=== PATIENT | male | born 1950 | race Caucasian/White ===

== ENCOUNTER → 2022-07-28 10:25 | Outpatient (CLI) | payer MEDICARE, OTHER, SELFPAY ==
[2022-07-28 11:15] LABS: COVID19 -Nasal RAPID Negative (Negative)
== END ==
PROVIDERS: Referring Provider Orthopaedic Surgery Orthopaedic Surgery of the Spine; Visit Provider Orthopaedic Surgery Orthopaedic Surgery of the Spine
DX: Z20.822 Contact with and (suspected) exposure to COVID-19 (principal)
CPT/HCPCS: 87635; C9803

== ENCOUNTER 2022-07-31 12:30 | Inpatient (IN) | payer MEDICARE, OTHER, SELFPAY ==
[2022-07-25 12:17] VITALS: BMI 31.5
[2022-07-31] VITALS (14 sets, daily range): BP systolic 113–159; BP diastolic 59–88; PULSE 49–64; RESP 11–28; TEMP 35.7–36.4; O2SAT 93–98; BMI 31.5
[2022-07-31] MEDS: LACTATED RINGERS 1,000 ML 42 ML IV (13:14)
--- NOTE | 2022-07-31 13:17 | PM.PREOP ---
Pre-operative Note COVID-19 COVID-19 status: Negative Result date/Date tested (Pos, Neg/Pending): 07/30/22 Criteria for continued procedure: Expected advancement of disease process, Possibility delay results in more complex future surgery or treatment, Increased loss of function, Continuing or worsening of significant or severe pain, Deterioration of the patient's condition or overall health and Delay expected to result in less-positive ultimate med/surg outcome Interval Note History & Physical reviewed/Exam performed by Physician: Yes Changes to H&P: No
--- NOTE | 2022-07-31 13:58 | PM.OP.1 ---
Operative Date/Time/Diagnoses Date of procedure: 07/31/22 Time of procedure: 14:15 Pre-op diagnosis: 1. L3-4 spinal stenosis with neurogenic claudication 2. L3-4 spondylolisthesis Post-op diagnosis: same Procedure & Clinicians Procedure: 1. L3-4 Postero-lateral and posterior interbody fusion 2. L3-4 interbody cage placement. 3. L3-4 decompressive laminectomy with bilateral facetecomies 4. L3-4 Posterior non-segmental instrumentation 5. [place] of bone marrow from iliac crest 6. Utilization of microsurgical technique and operating microscope Same procedure as scheduled: Yes Indications: Patient has been having chronic back pain and worsening lumbar radiculopathy and symptoms of neurogenic claudication. Patient failed multiple conservative management with worsening pain weakness and numbness in his lower extremity. Patient has been having difficulty performing activity of daily living. After discussing risks benefits of treatment options, patient elected proceed with surgery. Surgeon: Lisa Rashid Residential Recycle Driver: Ambrosio Baldwin Click Yes if Unassisted: No Anesthesia Type: General Operative Notes Closure Type: primary Specimen(s): none sent Prosthetic devices, grafts, tissues, transplants, or devices: Globus Revolve screws, Rise cage Estimated Blood Loss (mL): 50 Blood products transfused: none Procedure in detail: Patient was seen in the preoperative area. Risks and benefits of the surgery was discussed with the patient. Informed consent was obtained from the patient and placed in the chart. Surgical site was marked. Patient was taken to the operative room. General anesthesia was administered. Prophylactic antibiotic was given to the patient less than 30 min before the incision was made. Patient was placed into a prone position on the Brannon table. Patient's back was then prepped and draped in the sterile fashion. Time-out was performed at this time. Using AP and lateral C-arm imaging the interval between L3-4 was identified and marked on patient's back. A 2 inch incision 2 in from midline was made on the right side first. The fascia was incised in line with skin incision. Globus MARS retractors was placed inside the incision and docked onto the L3 lamina. Using microsurgical technique and operating microscope, a L3 laminectomy and L3-4 facetectomy was performed using a Kerrison rongeur. The disc space at L3-4 was identified. And a total diskectomy was performed at L3-4 level. The endplates were decorticated using a rasp and shaver. The total diskectomy and decortication was performed at L3-4 level in order to to accomplish a L3-4 fusion. The local bone from the laminectomy and facetectomy was saved for local bone grafting. After the total diskectomy and decortication was completed, Globus Trifecta bone graft material was combined with local bone that was harvested earlier. At this time, a separate skin is incision was made over the iliac crest. A Jamshidi needle was inserted into the iliac crest through a separate skin incision. 5 cc of bone marrow aspiration was obtained through the separate skin incision using a Jamshidi needle from the iliac crest. The bone marrow aspiration was combined with local bone and the Trifecta bone grafting material. The bone grafting material was placed into the L3-4 interbody space along with a expandable cage. The cage was expanded to its maximum height using the torque limiting screwdriver. At this time a mirror image incision was made on the left side. The fascia was incised in line with the skin incision. Globus MARS retractor was inserted and docked onto the L3-4 posterolateral gutter. Using the power drill, posterior-lateral decortication was performed at L3-4 level until bleeding cortical bone was identified. The remaining bone grafting material was placed into the L3-4 posterior lateral gutter he order to accomplish posterolateral fusion at the L3-4 level. Using the double C-arm technique, pedicle screws were placed into the L3-4 pedicles bilaterally. This was done by placing the Jamshidi needle into the pedicles, then placing the guidewires over the Jamshidi needle, and finally placing the cannulated screws over the guidewires bilaterally. After the pedicle screws were placed, 2 titanium rods was locked into the heads of the pedicle screws using locking caps and torque limiting screwdriver. After all the hardware was placed, and confirmed with AP and lateral C-arm imaging, the wound was then irrigated with sterile normal saline and packed with Ray-Tomasz gauze for 3 min to accomplish hemostasis. After the gauze was removed the deep fascia was closed with #1 Vicryl suture. The subcutaneous layer was closed with 2-0 Vicryl. The skin was closed with skin bina. Patient tolerated the procedure well. There were no complications. Complications: none Post-operative Condition: stable Disposition: PACU Plan for aftercare: Admit to inpatient hospital
[2022-07-31] MEDS: CEFAZOLIN 2 GM/100 ML PREMIX 100 ML IV ×2 (14:19→20:52)
--- NOTE | 2022-07-31 14:29 | SUR.OPER ---
Prone on spine table, head in foam head support, padded chest and pelvic supports, gel pad at knees, lower legs supported by pillows; nipples, genitalia and toes free of pressure, arms secured on foam padded arm boards at <90 degrees abduction. Tape over blanket at thigh secured to table.
[2022-07-31] MEDS: BUPIVACAINE 0.25% (PF) VIAL 30 ML INJ (14:45)
[2022-07-31] MEDS: BUPIVACAINE LIPOSOME 266 MG/20 ML VIAL INJ (14:46)
[2022-07-31] MEDS: ACETAMINOPHEN IV 1,000 MG/100 ML VIAL 400 MG IV (14:48)
--- NOTE | 2022-07-31 16:29 | DI.RAD.S_ITS ---
PROCEDURE: XR LUMBAR SPINE 2-3V INDICATIONS: L3-4 TLIF TECHNIQUE: Low resolution intraoperative fluoroscopic spot films of L3-4 COMPARISON: None. FINDINGS: Low resolution intraoperative fluoroscopic spot films show L3-4 interbody graft and associated posterior varun and screw instrumentation in place IMPRESSION: Fluoroscopic guidance Approved by: Darío Pang M.D. on 07/31/2022 at 15:59
[2022-07-31] MEDS: LORazepam 2 MG/ML INJ 0.25 MG IV (16:42)
[2022-07-31] MEDS: HYDROMORPHONE 2 MG INJ IV (16:50)
[2022-07-31] MEDS: hydrOXYzine 50 MG/ML INJ 25 MG IM (16:54)
[2022-07-31] MEDS: OXYCODONE IR 5 MG TABLET PO (17:10)
[2022-07-31] MEDS: SODIUM CHLORIDE 0.9% 1,000 ML 100 ML IV (18:00)
--- NOTE | 2022-07-31 18:27 | PC.NURSE ---
Addendum entered by Millie Martin R.N. 07/31/22 19:32: pt with large void this evening at approximately 1850, able to stand at the edge of the bed to void. medicated for 8/10 pain with oxycodone 10 mg and prn tylenol. Original Note: Pt arrived from PACU this evening at 1710, A&OX3, VSS, afebrile on 4LNC. He denies SOB, n/v. He is weaned down on 02. Encourgaed IS use. LR running at 100 ml/hr. He is able to log roll in bed, dressing c/d/i. +CMS to BLE's. Awaiting patient to void.
[2022-07-31] MEDS: DOCUSATE 100 MG CAPSULE PO (20:43)
[2022-07-31] MEDS: DONEPEZIL 5 MG TABLET 10 MG PO (20:43)
[2022-07-31] MEDS: SENNOSIDES 8.6 MG TABLET 17.2 MG PO (20:43)
[2022-07-31] MEDS: ATORVASTATIN 20 MG TABLET 40 MG PO (20:43)
[2022-07-31] MEDS: TRAZODONE 50 MG TABLET 100 MG PO (20:43)
[2022-07-31] MEDS: hydrOXYzine pamoate 25 MG CAPSULE PO (21:44)
[2022-07-31] MEDS: HYDROCODONE/ACET 5/325 TABLET 1 TAB PO (21:44)
[2022-08-01] MEDS: OXYCODONE IR 5 MG TABLET 10 MG PO ×3 (01:06→10:48)
[2022-08-01] MEDS: ACETAMINOPHEN 325 MG TABLET 650 MG PO (01:06)
[2022-08-01] MEDS: SODIUM CHLORIDE 0.9% 1,000 ML 100 ML IV (04:39)
[2022-08-01] MEDS: CEFAZOLIN 2 GM/100 ML PREMIX 100 ML IV (05:31)
[2022-08-01 06:45] VITALS: BP 115/69; PULSE 73; RESP 17; TEMP 36.6; O2SAT 93
--- NOTE | 2022-08-01 09:50 | PT.IIE ---
Current Diagnoses Spondylolisthesis, lumbar region (07/31/22) Spinal stenosis, lumbar region with neurogenic claudication (07/31/22) Surgery Performed Operation Date: 07/31/22 14:15 Actual Procedures p L3-4 TLIF(Not Applicable) - Lisa Rashid MD Surgical History (Last Updated 07/25/22 @ 10:21 by Jaylene Kearns RN) H/O left wrist surgery (2016) H/O right wrist surgery (2011) H/O vasectomy (1990) History of carpal tunnel surgery of right wrist History of prostate surgery (12/08/19) Hx of arthroscopy of right knee (10/29/87) Hx of knee surgery (10/29/06) S/P epidural steroid injection Medical History (Last Updated 07/25/22 @ 11:05 by Jaylene Kearns RN) Acute saddle pulmonary embolism with acute cor pulmonale (09/2021) Arthritis Atrial fibrillation (~2020) BPH (benign prostatic hyperplasia) CAD (coronary artery disease) Easy bruisability History of colonic polyps HTN (hypertension) Hypercholesterolemia Insomnia Mild cognitive impairment Nonischemic cardiomyopathy Osteoarthritis Sensorineural hearing loss Systolic heart failure Tinnitus of both ears Physical Therapy Inpatient Evaluation/Re-Eval M1 PT/OT-IP Prior Functional Status Start: 08/01/22 13:09 Freq: NEEDED Status: Active Protocol: Document 08/01/22 09:50 AB (Rec: 08/01/22 13:20 [facility] [id number]) Medical Review Prior Functional Status Medical History Reviewed Yes Communication able to make needs known Mobility and Gait pt stated that he is modified independent with all mobilities and ambulation without AD Social History Household Members spouse,children Living Arrangements House Number of Floors (Floors) Two Floors Number of Stairs To Enter/Railing? 3 steps R rail ascending to enter the house 12 steps to bedroom with L rail ascending: pt stated that he will stay on the main level of the house Home Environment Standard Height Toilet,High Toilet,Walk in Shower Home Equipment Front Wheel Walker,Straight Cane M2 PT-IP Current Condition Start: 08/01/22 13:09 Freq: NEEDED Status: Active Protocol: Document 08/01/22 09:50 AB (Rec: 08/01/22 13:20 [id number] Therapy Current Condition Current Condition Evaluation Date 08/01/22 Treatment Diagnosis s/p L3-4 TLIF; difficulty in walking Onset Date 07/31/22 M3 PT-IP Subjective Start: 08/01/22 13:09 Freq: NEEDED Status: Active Protocol: Document 08/01/22 09:50 AB (Rec: 08/01/22 13:20 AB [id number]) Subjective Physical Therapy Visit Type Type Initial Evaluation Visit Start Time 09:50 Visit Stop Time 10:42 Total Visit Minutes 52 Number of DIE MECHANIC Visits 0 Physical Therapy Visit Comments Patient Comments agreeable to do PT Therapy Pain Assessment Pain When Pain Assessed At Rest Pain Present Pain Present Pain Reported Location Back Intensity 4 Scale Used Numeric (0 - 10) Pain Management Techniques Apply Cold,Distraction, Modification of Treatment,Re- positioning,Timing of Activity with Medications M4 PT-IP Mobility and Gait Start: 08/01/22 13:09 Freq: NEEDED Status: Active Protocol: Document 08/01/22 09:50 AB (Rec: 08/01/22 13:20 AB [id number]) PT-Bed Mobility Assessment Rolling Type of Rolling Log Rolling Level of Assist Standby Assistance Supine to Sit Supine to Sit Standby Assistance Sit to Supine Sit to Supine Standby Assistance PT-Transfer Assessment Sit to and From Stand Sit to and from Stand Contact Guard Assistance,1 Person Assistance,Use of Upper Extremities Equipment Transfer Assistive Device Gait Belt,Front Wheeled Walker Orthotic/Prosthetic Devices or Brace: No Transfers Transfer Destination Chair Transfer Technique ambulated Transfer Ability Level of Assist Contact Guard Assistance,1 Person Assistance,Use of Upper Extremities Comments Mobility Comments spouse in room with pt. educated pt and spouse regarding pt's back precautions and log roll bed mobility. spouse stated that pt has memory issues. pt completed log roll bed mobility SBA with initial cues but repeated again and no cues needed. pt able to siti on EOB SBA. completed sit to stand CGA and ambulated to the chair using FWW SBA. caregiver training conducted. educated spouse on how to use safety belt and how to assist pt. spouse was able to put safety belt on pt. assisted pt with sit to stand and ambulated pt in the hallway using FWW SBA to CGA ~ 150 ft. educated pt and spouse on how to complete stair climbing. pt completed up/down steps holding on to R rail with B hands. spouse assist pt. pt completed x 3 steps and spouse was able to assist pt safely. pt ambulated back to his room using FWW SBA to CGA ~ 250 ft. pt agreed to sit on the chair. positioned pt on the chair. call light and table placed within reach. pt and spouse without further concerns. Gait Assessment Gait Gait Assistance Required: Standby Assistance,Contact Guard Assist,1 Person Assist Distance (Feet) 250 Able to Maintain Weight Bearing Status No During Gait Assistive Devices Assistive Device Gait Belt,Front Wheeled Walker Orthotic/Prosthetic Devices or Brace: No Gait Deviations General Gait Pattern Decreased Stride Length, Decreased Feet Clearance Factors Limiting Gait Function Factors Limiting Gait Function Decreased Activity Tolerance, Decreased Strength,Difficulty Following Directions,Limited Range of Motion,Pain,Poor Balance,Poor Safety Awareness Comments Gait Comments pls refer to mobility section for details Stair Climbing Assessment Evaluation Level of Assist On Stairs Contact Guard Assistance Devices Stair Climbing Assistive Devices Right Railing Technique/Endurance Stair Climbing Direction Ascend and Descend Stair Climbing Technique Step to Step Number of Steps Climbed 3 Query Text: Stair Climbing Set # Repetitions (reps) 3 Comments Stair Climbing Comments refer to mobility section for details PT-Balance Assessment Sitting Balance and Reactions Static Sitting Balance Ability Normal Dynamic Sitting Balance Ability Good Standing Balance and Reactions Static Standing Balance Ability Fair Dynamic Standing Balance Ability Fair Device Used FWW M5 PT-IP Objective Assessments Start: 08/01/22 13:09 Freq: NEEDED Status: Active Protocol: Document 08/01/22 09:50 AB (Rec: 08/01/22 13:20 [id number]) Orientation Orientation/Cognition Level of Alertness Alert Orientation Name,Place,Situation Language Function Ability Hard of Hearing Safety Awareness Decreased Safety Awareness Memory Description Short Term Impaired Gross Range of Motion Lower Extremity ROM Assessment Within Functional Limits Strength Lower Extremity Strength Hip 4-/5 Knee 4-/5 Sensation Assessment Sensation Gross Sensation WNL Muscle Tone Muscle Tone WNL Yes M6 PT-IP Treatment Start: 08/01/22 13:09 Freq: NEEDED Status: Active Protocol: Document 08/01/22 09:50 AB (Rec: 08/01/22 13:20 AB [id number]) Physical Therapy Treatment Education Education Provided Precautions,Weight Bearing Status,Post-Op Packet,Safety M7 PT-IP Assessment and Plan Start: 08/01/22 13:09 Freq: NEEDED Status: Active Protocol: Document 08/01/22 09:50 AB (Rec: 08/01/22 13:20 AB [id number]) PT Summary Assessment and Plan Potential Rehabilitation Potential Good Status of Condition at Evaluation Stable Summary Impairments Pain,ROM,Strength,Balance, Coordination,Sensation,Tone, Cognition,Bed Mobility, Transfers,Gait,Activity Tolerance Assessment Summary pt requiring SBA to CGA with mobility using FWW. caregiver training conducted and spouse was able to assist pt safely. pt plans to go home and spouse to assist him. pt may go home when medically stable. Goals Bed Mobility Goal Independent Transfer Goal Independent,Front Wheeled Walker Gait Goal Independent,Front Wheel Walker Gait Distance 300 Other Goals up/down 3 steps R rail ascending mod I Days to Meet Goals 3 Frequency of Treatment Frequency Of Treatment Twice a Day Treatment Plan Physical Therapy Treatment Plan Bed Mobility Training,Transfer Training,Gait Training, Therapeutic Exercise,Balance Retraining,Post Op Education, Discharge Planning,Hot or Cold Pack,Neuromuscular Re-ed, Coordination Retraining,Manual Therapy Precautions Lumbar Precautions Log Roll,No Twisting,Limit Bending,Lifting Restriction of 10 lbs,Gait Belt above Incisional Area Recommendations To Nursing Amount of Assist Needed 1 Person Assist Discharge Recommendations PT Discharge Recommendations Home with Assistance Transportation Needs at Discharge Private Vehicle
[2022-08-01 10:00] VITALS: BP 132/64; PULSE 72; RESP 18; TEMP 36.6; O2SAT 95
[2022-08-01] MEDS: hydroCHLOROthiazide 25 MG TABLET PO (10:48)
[2022-08-01] MEDS: DOCUSATE 100 MG CAPSULE PO (10:48)
[2022-08-01] MEDS: lisinopriL 5 MG TABLET PO (10:48)
--- NOTE | 2022-08-01 11:19 | P.DS_ITS ---
History of Present Illness History of Present Illness Date Patient Seen: 08/01/22 Time Patient Seen: 11:19 Chief complaint: INPT Narrative: Postop day 1 L3-[address] fusion [address] Rashid. Doing very well sitting at bedside. Walked around the physical therapy. Family in the room. Pain controlled. No complaints. Discharge Providers Provider Date of admission: 07/31/22 12:30 Discharge Date: 08/01/22 Primary care physician: Tyree Oconnor DO Consults: 07/25/22 12:25 Consult to Anesthesiology Routine Comment: Consulting Provider: Anesthesiologist Reason for consultation: PAC courtesy re: Cardiopulmonary history 07/31/22 17:26 Consult to Occupational Therapy Evaluate & Treat Comment: Physician Instructions: Evaluate and treat Consult to Physical Therapy Evaluate & Treat Comment: Physician Instructions: Evaluate and Treat Discharge provider: Savita Pena MD Summary Hospital Course Discharge Diagnosis: Spondylolisthesis lumbar Hospital Course: Patient was admitted to the floor after surgery for his L3-4 posterior spinal fusion. He is doing well. He was maintained on IV and oral pain medication wean to oral pain medication. Tolerated p.o. diet. He was able to walk around the floor with physical therapy needing no assistance. On postoperative day 1 pain was controlled and he was appropriate for discharge home. Status at Discharge Cognitive/behavioral status at discharge: oriented Functional status at discharge: independent ambulation Overall status at discharge: patient is progressing back to baseline Time Spent with Patient Time spent: Less than 30 minutes Exam Vital Signs (past 8 hours): - 08/01/22 06:45 Temperature 97.8 F Pulse Rate 73 Respiratory Rate 17 Blood Pressure 115/69 Pulse Oximetry 93 Oxygen Flow Rate 0 Oxygen Delivery Method Room Air Oxygen Flow Rate 0 Narrative Exam Narrative: Alert oriented male no acute distress. HEENT normocephalic atraumatic Lungs clear to auscultation VAC dressing is clean dry and intact Demonstrates 5/5 dorsiflexion plantar flexion. Sensation grossly intact bilateral lower extremities. Calves are soft. [facility] Medical History (Updated 07/25/22 @ 11:05 by Jaylene Kearns RN) Acute saddle pulmonary embolism with acute cor pulmonale (09/2021) Arthritis Atrial fibrillation (~2020) BPH (benign prostatic hyperplasia) CAD (coronary artery disease) Easy bruisability History of colonic polyps HTN (hypertension) Hypercholesterolemia Insomnia Mild cognitive impairment Nonischemic cardiomyopathy Osteoarthritis Sensorineural hearing loss Systolic heart failure Tinnitus of both ears Surgical History (Updated 07/25/22 @ 10:21 by Jaylene Kearns RN) H/O left wrist surgery (2016) H/O right wrist surgery (2011) H/O vasectomy (1990) History of carpal tunnel surgery of right wrist History of prostate surgery (12/08/19) Hx of arthroscopy of right knee (10/29/87) Hx of knee surgery (10/29/06) S/P epidural steroid injection Social History household members: spouse and children Smoking Status: Former smoker alcohol intake: current Discharge Assessment & Plan Assessment and Plan Assessment: Normal postoperative course L3-L4 posterior spinal fusion Plan of Treatment: Routine postop spinal fusion protocol. No bending lifting or twisting. Keep dr almeida clean dry and intact. Follow-up in 2 weeks. Discharge home. May resume baseline Xarelto on postop day 3 () Discharge Plan Discharge Plan Patient Disposition: Home Discharge orders & Medications Prescriptions: New oxycodone 5 mg tablet 5 - 10 mg PO Q4H PRN (Reason: pain) Qty: 40 0RF Rx Instructions: Postop exempt ondansetron 4 mg tablet,disintegrating 4 mg PO Q8H PRN (Reason: nausea and vomiting) Qty: 7 0RF Continued atorvastatin 40 mg Tablet 40 mg PO BEDTIME trazodone 50 mg Tablet 100 mg PO BEDTIME donepezil 10 mg Tablet 10 mg PO BEDTIME acetaminophen [Tylenol 8 Hour] 650 mg Tablet Extended Release 650 mg PO DAILY PRN (Reason: Pain) lisinopril 5 mg Tablet 5 mg PO DAILY hydrochlorothiazide 25 mg Tablet 25 mg PO QAM metoprolol succinate 25 mg Tablet Extended Release 24 Hr 12.5 mg PO QPM tadalafil 5 mg Tablet 5 mg PO DAILY PRN (Reason: Sexual Activity) Rx Instructions: administer approximately 30min before sexual activity; do not use more than 1 dose per 24hrs Xarelto 20 mg Tablet 20 mg PO QPM Rx Instructions: must administer with evening meal Discontinued hydrocodone-acetaminophen 5-325 mg Tablet 1 tab PO Q4-6H PRN (Reason: Pain) Follow up/Referrals: Tyree Oconnor DO [Primary Care Provider] - Diet/Activity/Treatments Diet: Diet as Tolerated and Regular Activity: No bending lifting or twisting Other treatments: Follow-up as scheduled in 2 weeks to [facility] -you may restart your Xarelto on postop day 3 () Skin/Wound/Dressing Care Report to your healthcare provider any signs of infection, such as:: chills, fever, night sweats, increased pain, unusual drainage and unusual redness Dressing: Keep dressing clean dry and intact Visit Report/Discharge Packet Instructions: DI for Prescription Opioid Use, DI for Transforaminal Lumbar Interbody Fusion Discharge Data Primary Care Provider: Tyree Oconnor Quality VTE Deep Vein Thrombosis/Pulmonary Embolism Present on Admission: No
--- NOTE | 2022-08-01 12:34 | OT.IP.EVAL ---
Current Diagnoses Spondylolisthesis, lumbar region (07/31/22) Spinal stenosis, lumbar region with neurogenic claudication (07/31/22) Surgery Performed Operation Date: 07/31/22 14:15 Actual Procedures p L3-4 TLIF(Not Applicable) - Lisa Rashid MD Past Medical History (Last Updated 07/25/22 @ 11:05 by Jaylene Kearns, RN) Acute saddle pulmonary embolism with acute cor pulmonale (09/2021) Arthritis Atrial fibrillation (~2020) BPH (benign prostatic hyperplasia) CAD (coronary artery disease) Easy bruisability History of colonic polyps HTN (hypertension) Hypercholesterolemia Insomnia Mild cognitive impairment Nonischemic cardiomyopathy Osteoarthritis Sensorineural hearing loss Systolic heart failure Tinnitus of both ears Surgical History (Last Updated 07/25/22 @ 10:21 by Jaylene Kearns RN) H/O left wrist surgery (2016) H/O right wrist surgery (2011) H/O vasectomy (1990) History of carpal tunnel surgery of right wrist History of prostate surgery (12/08/19) Hx of arthroscopy of right knee (10/29/87) Hx of knee surgery (10/29/06) S/P epidural steroid injection Occupational Therapy Inpatient Evaluation/Re-Eval M1 PT/OT-IP Prior Functional Status Start: 08/01/22 13:09 Freq: NEEDED Status: Active Protocol: Document 08/01/22 12:23 [facility] (Rec: 08/01/22 13:44 [facility] [id number]) Medical Review Prior Functional Status Medical History Reviewed Yes Communication able to make needs known Mobility and Gait pt stated that he is modified independent with all mobilities and ambulation without AD Activities of Daily Living and IADL's Pt able to do ADl and IADl on his own. Social History Household Members spouse,children Living Arrangements House Number of Floors (Floors) Two Floors Number of Stairs To Enter/Railing? 3 steps R rail ascending to enter the house 12 steps to bedroom with L rail ascending: pt stated that he will stay on the main level of the house Home Environment Standard Height Toilet,High Toilet,Walk in Shower Home Equipment Front Wheel Walker,Straight Cane M2 OT-IP Current Condition Start: 08/01/22 13:29 Freq: Status: Active Protocol: Document 08/01/22 12:23 [facility] (Rec: 08/01/22 13:44 [facility] [id number]) Occupational Therapy Current Condition Current Condition Evaluation Date 08/01/22 Treatment Diagnosis S/p L3-4 TLIF Diagnosis Onset Date 07/31/22 Post Operative Precautions Lumbar Precautions Log Roll,No Twisting,Limit Bending,Lifting Restriction of 10 lbs,Gait Belt above Incisional Area M3 OT- IP Subjective and Pain Start: 08/01/22 13:29 Freq: Status: Active Protocol: Document 08/01/22 12:23 [facility] (Rec: 08/01/22 13:44 [facility] [id number]) OT- Subjective Occupational Therapy Visit Type Type Initial Evaluation Visit Start Time 12:23 Visit Stop Time 12:34 Total Visit Minutes 11 Occupational Therapy Visit Comments Patient Comments Pt agreed to work with OT and pt's in the room. Patient/Caregiver Goals to go home OT Pain Assessment Pain When Pain Assessed At Rest Pain Present Pain Present Denied Pain M4 OT- IP ADL's Start: 08/01/22 13:29 Freq: Status: Active Protocol: Document 08/01/22 12:23 [facility] (Rec: 08/01/22 13:44 [facility] [id number]) OT [id number] Comments OT Self-Feeding Comments NOt at meal time. OT ADL-Grooming Comments OT Grooming Comments Pt states did prior. OT ADL-Oral Care Comments Oral Care Comments Pt states did earlier, emphasize best to just spit into a cup or hinge at his hips to best follow his back precautions. OT ADL-Dressing Comments OT Dressing Comments Pt states able to comfortably cross his legs to do LB dressing needs of socks this morning OT ADL-Toileting Comments OT Toileting Comments Pt able to simulate and able to reach appropriately for wiping and able to follow his back precautions with good safety. OT ADL-Bathing Comments OT Bathing Comments Pt states has a small shower stall which a shower chair may not fit and therefore suggested his be there to assist. M5 OT- IP IADL's Start: 08/01/22 13:29 Freq: Status: Active Protocol: Document 08/01/22 12:23 [facility] (Rec: 08/01/22 13:44 [facility] [id number]) OT-Instrumental Activities of Daily Living Home Safety Awareness Home Safety Comments Pt has a supportive to assist for his needs. Medication Management Medication Management Comments Pt a bit confused and groggy and will benefit from assist. Money Management Money Management Comments Pt a bit confused and groggy and will benefit from assist. Meal Preparation Meal Preparation Caregiver Provides Assist Embroidery Cutter Embroidery Cutter Caregiver Provides Assist M6 OT- IP Functional Cognition Start: 08/01/22 13:29 Freq: Status: Active Protocol: Document 08/01/22 12:23 [facility] (Rec: 08/01/22 13:44 [facility] [id number]) Cognitive Factors Limiting Selfcare Function Cognitive Ability Level of Alertness Alert Patient Orientation Name,Place,Situation Attention Span Ability Capable of Focused Attention, Capable of Sustained Attention Ability to Follow Commands Able to Follow One Step Commands with Increased Time, Able to Follow One Step Commands with Repetition Memory Description Short Term Impaired Cognitive Comments Cognitive Assessment Comments Pt a bit hard of hearing and needing concrete cues to follow. Pt not able to recall his back precautions. OT- Vision and Hearing OT- Hearing Assessment OT- Hearing Assessment Hearing Impaired,Use of Hearing Aids M7 OT- IP Mobility and Balance Start: 08/01/22 13:29 Freq: Status: Active Protocol: Document 08/01/22 12:23 [facility] (Rec: 08/01/22 13:44 [facility] [id number]) OT-Transfer Assessment Sit to and From Stand Sit to and from Stand Contact Guard Assistance Comments Mobility Comments CGA to come to stand. OT- Balance Assessment Sitting Balance and Reactions Static Sitting Balance Ability Normal Dynamic Sitting Balance Ability Good Standing Balance and Reactions Static Standing Balance Ability Fair M8 OT- IP Objective Assessments Start: 08/01/22 13:29 Freq: Status: Active Protocol: Document 08/01/22 12:23 [facility] (Rec: 08/01/22 13:44 [facility] [id number]) OT-Muscle Tone Assessment Muscle Tone WNL Yes M9 OT- IP Assessment and Plan Start: 08/01/22 13:29 Freq: Status: Active Protocol: Document 08/01/22 12:23 [facility] (Rec: 08/01/22 13:44 [facility] [id number]) OT Summary Assessment and Plan Potential Rehabilitation Potential Good Analytic Complexity at Evaluation Low Summary OT Impairments Balance,Functional Mobility, Dressing,Toileting,Bathing, Toilet Transfers,Shower Transfers Progress Towards Goals Progressing Toward Goals Assessment Summary Pt has a supportive to assist with pt for all needs. Pt needing reminders for back precautions as a bit hard of hearing and forgetful. Pt looking to go home with to assist when medically stable. Goals Dressing Goal Independent Toileting Goal Independent Bathing Goal Independent Toilet Transfer Goal Independent Shower Transfer Goal Independent Days to Meet Goals 3 Frequency of Treatment Frequency Of Treatment Once a Day Treatment Plan OT Treatment Plan ADL Training,Functional Cognition Training,Functional Mobility,Patient/Family Education,Discharge Planning Discharge Recommendations OT Discharge Recommendations Home with 21/05 Assist Available Home Equipment Needs shower chair Transportation Needs at Discharge Private Vehicle
--- NOTE | 2022-08-01 13:37 | CM.DANOTE ---
DCP/Assessment: Reviewed chart. Patient is a 72yr old male admitted [facility] for [facility] TLIF performed on 07-31-22. PCP listed is Dr. Davidson. Primary payor is 1)Medicare 2)[employer]. Met with patient and spouse at bedside explained CM/SW role. Patient reports that he is discharging home today. Patient seen by therapy and did very well. Patient reports that he has family support and walker if needed. No additional d/c needs identified. P: Home today. [facility] Discharge Planning/Care Management CM Discharge Assessment Start: 08/01/22 13:32 Freq: Status: Active Protocol: Document 08/01/22 13:32 [facility] (Rec: 08/01/22 13:34 [facility] [id number]) Discharge Planning Assessment Assigned Sole Trimmer JAMIE Jameson Contact Information Nick Valerio (family) # Advance Directives? Yes Advance Directives on File No History Provided By Patient,Family Member,Medical Record Prior Living Arrangements House Household Members spouse,children Type of transporation used prior to Drives own vehicle admit Independent with ADL's Yes Is patient alert and oriented? Yes Caregiver for Another No DME Already Rented / Owned FWW / Walker Comment Only uses as needed. Barriers to Discharge No Discharge Plan Home Transportation Arrangement Family to provide transport. Referrals Initiated None needed Review Status In Process Next Review Type Continued Stay Review Pre-Anesthesia Assessment Start: 07/25/22 09:37 Freq: Status: Active Protocol: Document 07/25/22 12:17 [facility] (Rec: 07/25/22 12:25 [facility] [id number]) Pre-Anesthesia Assessment Preferred Name Isaac Patient Information Reviewed Via Phone Assessment Assessment Completed With Patient Diagnostic Results BMP/CMP,CBC,EKG Comment Outside labs/ECG scanned, COVID screen @ [facility] 07/28/22 Primary Care Provider Tyree Oconnor Seen Specialist in Last 12 Months Yes Specialist Seen Senior Office Support Assistant Sosa,Orthopedist Primary Language Ghanaian Forms Builder Required No Height 177.8 cm Weight 99.79 kg Body Mass Index (BMI) 31.5 Hearing Ability Hard of Hearing,Use of Hearing Aid Visual Assist Glasses Dentition Type Teeth, Natural Present Barriers to Learning Cognitive impairment Hx Anesthesia Reactions No Hx Family Anesthesia Reaction No Hx Malignant Hyperthermia No Hx Blood Transfusions No Anesthesia Review Requested Yes: PAC courtesy re: Cardioplumonary history alcohol intake current alcohol intake frequency 0-2 drinks per day Smoking Status Former smoker how long ago did patient quit smoking Quit in the ' Substance Use Type does not use Pain Present Pain Reported Musculoskeletal Symptoms Abnormal Gait,Back Pain,Joint Pain,Muscle Weakness,Radiating Pain into Limb History of Falling (Recent or History of No ) Patient is completely paralyzed or No completely immobile Mental Status Oriented to own ability Is patient on oxygen? No Does patient have TYSON/SOB No Hx Sleep Apnea No Currently Taking a Beta Tommie Yes: Metoprolol Can You Climb a Flight of Stairs Without Yes SOB Hx Chest Pain No Hx SOB No Hx Syncope or Dizziness Yes Anti-Coagulant Therapy Yes: Xarelto-advised to hold 5 days per Cardiolog, last dose 07/24/[address] Rashid Has a Senior Office Support Assistant Sosa Yes: Cardiac visit 07/14/22 Senior Office Support Assistant Sosa name Dr. Acosta @ [facility] – [place] Hx Pacemaker/ICD No Pacemaker Rep Required? No Cardiac Clearance Received Yes Comment Cardiac records scanned Diet Type At Home Regular dysphagia No Urinary Catheter Present No Hx Urinary Self Catheterization No Diabetes No Hx Drug Resistant Organism No Presence of External or Internal Medical Yes: Hearing aids, bilat wrist Devices fusions Have you had any close contact with No someone diagnosed with COVID-19? Received a COVID vaccine? Yes Received all doses? Yes Marital Status Lives With spouse,children Prior Living Arrangements House Support System Child/Children,Spouse Does the Patient Have Assistance After Yes Surgery Patient Discharge Plan Description Return Home Comment Pt advised overnight length of stay per surgeon Feels Safe in Current Environment Yes Been Physically Hurt or Threatened By a No Person in Current Environment Do you have thoughts of harming yourself None or others? Are you currently considering suicide? No Do you have a plan to hurt yourself or No Plan others? Do You Have Any Spiritual Beliefs That No May Affect Your HC Choices? Do You Have Any Cultural Practices That No May Affect Your HC Choices? Comment [place] Who Can We Speak to About Patient's Care Family, friends Identifying Code for Release of Patient Declines to issue Information Health Care Proxy/Next of Kin Tracy () Ave (daughter ) Health Care Proxy Phone Number Tracy: [phone] Ave: [phone] Emergency Contact Name Tracy () Ave (daughter ) Emergency Contact Phone Number Tracy: [phone] [place]: [phone] Advance Directives? Yes Advance Directives on File No Requested Patient Bring Advanced Yes Directives DOS Power of Lesson Instructor No PAC Instructions Durable medical equipment, Medications to take/avoid, Nasal antibiotic,No ETOH/ petroleum product on skin DOS, NPO,Post-op transportation,Pre -surgical wash,Sensory aids, Sturdy shoes/comfortable clothes,Do not bring valuables and remove jewelry Discharge Planning/Care Management CM Discharge Assessment Start: 08/01/22 13:32 Freq: Status: Active Protocol: Document 08/01/22 13:32 [facility] (Rec: 08/01/22 13:34 [facility] [id number]) Discharge Planning Assessment Assigned Sole Trimmer JAMIE Jameson Contact Information Nick Valerio (family) # [phone] Advance Directives? Yes Advance Directives on File No History Provided By Patient,Family Member,Medical Record Prior Living Arrangements House Household Members spouse,children Type of transporation used prior to Drives own vehicle admit Independent with ADL's Yes Is patient alert and oriented? Yes Caregiver for Another No DME Already Rented / Owned FWW / Walker Comment Only uses as needed. Barriers to Discharge No Discharge Plan Home Transportation Arrangement Family to provide transport. Referrals Initiated None needed Review Status In Process Next Review Type Continued Stay Review Pre-Anesthesia Assessment Start: 07/25/22 09:37 Freq: Status: Active Protocol: Document 07/25/22 12:17 [facility] (Rec: 07/25/22 12:25 [facility] [id number]) Pre-Anesthesia Assessment Preferred Name Isaac Patient Information Reviewed Via Phone Assessment Assessment Completed With Patient Diagnostic Results BMP/CMP,CBC,EKG Comment Outside labs/ECG scanned, COVID screen @ 07/28/22 Primary Care Provider Tyree Oconnor Seen Specialist in Last 12 Months Yes Specialist Seen Senior Office Support Assistant Sosa,Orthopedist Primary Language Ghanaian Forms Builder Required No Height 177.8 cm Weight 99.79 kg Body Mass Index (BMI) 31.5 Hearing Ability Hard of Hearing,Use of Hearing Aid Visual Assist Glasses Dentition Type Teeth, Natural Present Barriers to Learning Cognitive impairment Hx Anesthesia Reactions No Hx Family Anesthesia Reaction No Hx Malignant Hyperthermia No Hx Blood Transfusions No Anesthesia Review Requested Yes: PAC courtesy re: Cardioplumonary history alcohol intake current alcohol intake frequency 0-2 drinks per day Smoking Status Former smoker how long ago did patient quit smoking Quit in the Substance Use Type does not use Pain Present Pain Reported Musculoskeletal Symptoms Abnormal Gait,Back Pain,Joint Pain,Muscle Weakness,Radiating Pain into Limb History of Falling (Recent or History of No ) Patient is completely paralyzed or No completely immobile Mental Status Oriented to own ability Is patient on oxygen? No Does patient have TYSON/SOB No Hx Sleep Apnea No Currently Taking a Beta Tommie Yes: Metoprolol Can You Climb a Flight of Stairs Without Yes SOB Hx Chest Pain No Hx SOB No Hx Syncope or Dizziness Yes Anti-Coagulant Therapy Yes: Xarelto-advised to hold 5 days per Cardiolog, last dose 07/24/[address] Rashid Has a Senior Office Support Assistant Sosa Yes: Cardiac visit 07/14/22 Senior Office Support Assistant Sosa name Dr. Acosta @ [facility] – [place] Hx Pacemaker/ICD No Pacemaker Rep Required? No Cardiac Clearance Received Yes Comment Cardiac records scanned Diet Type At Home Regular dysphagia No Urinary Catheter Present No Hx Urinary Self Catheterization No Diabetes No Hx Drug Resistant Organism No Presence of External or Internal Medical Yes: Hearing aids, bilat wrist Devices fusions Have you had any close contact with No someone diagnosed with COVID-19? Received a COVID vaccine? Yes Received all doses? Yes Marital Status Lives With spouse,children Prior Living Arrangements House Support System Child/Children,Spouse Does the Patient Have Assistance After Yes Surgery Patient Discharge Plan Description Return Home Comment Pt advised overnight length of stay per surgeon Feels Safe in Current Environment Yes Been Physically Hurt or Threatened By a No Person in Current Environment Do you have thoughts of harming yourself None or others? Are you currently considering suicide? No Do you have a plan to hurt yourself or No Plan others? Do You Have Any Spiritual Beliefs That No May Affect Your HC Choices? Do You Have Any Cultural Practices That No May Affect Your HC Choices? Comment [place] Who Can We Speak to About Patient's Care Family, friends Identifying Code for Release of Patient Declines to issue Information Health Care Proxy/Next of Kin Tracy () Ave (daughter ) Health Care Proxy Phone Number Tracy: [phone] Ave: [phone] Emergency Contact Name Tracy () Ave (daughter ) Emergency Contact Phone Number Tracy: [phone] [place]: [phone] Advance Directives? Yes Advance Directives on File No Requested Patient Bring Advanced Yes Directives DOS Power of Lesson Instructor No PAC Instructions Durable medical equipment, Medications to take/avoid, Nasal antibiotic,No ETOH/ petroleum product on skin DOS, NPO,Post-op transportation,Pre -surgical wash,Sensory aids, Sturdy shoes/comfortable clothes,Do not bring valuables and remove jewelry
--- NOTE | 2022-08-01 16:46 | PC.NURSE ---
Addendum entered by Sona Medel R.N. 08/01/22 16:49: Dressing was changed prior to d/c. Lg bulky removed and new dressing applied. Incision with minimal bruises or redness, No drainage see. Pt given 1 dressing until he can obtain a supply, Original Note: Discharge: Feels ready to d/c to home. PT has been in and cleared pt for d/c. Spouse her and caregiver training completed. Provider here and gave d/c instructions. Pt reports po pain meds are effective. Tolerates diet w/out problems. Understands his activity limits. Has voided w/out diff. Reviewed d/c packet and questions answered. Rx has been esent. Both patient and spouse feel ready for d/c. Pt d/c to home via auto with spouse.
== END 2022-08-01 14:45 | disposition home or self-care (01) | DRG 455 ==
PROVIDERS: Admitting Provider Orthopaedic Surgery Orthopaedic Surgery of the Spine; PCP Family Medicine Adult Medicine; Referring Provider Orthopaedic Surgery Orthopaedic Surgery of the Spine; Visit Provider Orthopaedic Surgery Orthopaedic Surgery of the Spine
PROC: 0SG00AJ Fusion of Lumbar Vertebral Joint with Interbody Fusion Device, Posterior Approach, Anterior Column, Open Approach (ICD-10-PCS; principal; 2022-07-31 14:15)
DX: M43.16 Spondylolisthesis, lumbar region (principal); M48.062 Spinal stenosis, lumbar region with neurogenic claudication; I10 Essential (primary) hypertension; E78.00 Pure hypercholesterolemia, unspecified; I48.91 Unspecified atrial fibrillation; Z79.01 Long term (current) use of anticoagulants; Z87.891 Personal history of nicotine dependence; Z20.822 Contact with and (suspected) exposure to COVID-19
CPT/HCPCS: 72100; 76000; 87635; 97161; 97165; 97530; C9803; C1713; C1831; C9290; J0131; J0330; J0690; J1100; J1170; J2060; J2250; J2405; J2704; J3010; J3410